=== PATIENT | male | born 1975 | race Caucasian/White ===

== ENCOUNTER 2018-01-28 10:03 | Emergency (ER) | payer OTHER ==
[~2018-01-28] VITALS: Ht 185.4 cm; Wt 103.4 kg
[2018-01-28 10:31] LABS: BASOPHILS # (AUTO) 0.1 /CMM (0.0-0.2); BASOPHILS % (AUTO) 0.6 % (0.0-2.0); EOSINOPHILS % (AUTO) 7.6 % (0.0-6.0); HEMATOCRIT 40 % (39-51); HEMOGLOBIN 13.5 g/dL (13.5-17.5); LYMPHOCYTES # (AUTO) 2.2 /CMM (0.8-4.8); LYMPHOCYTES % (AUTO) 21.7 % (20.0-44.0); MEAN CORPUSCULAR HGB CONC 34 g/dl (31.0-36.0); MEAN CORPUSCULAR VOLUME 83 fL (80-96); MONOCYTES # (AUTO) 0.5 /CMM (0.1-1.30); MONOCYTES % (AUTO) 5.1 % (2.0-12.0); NEUTROPHILS # (AUTO) 6.4 /CMM (1.8-8.9); PLATELET COUNT (AUTO) 314 /CMM (150-450); RDW COEFFICIENT OF VARIATION 16.3 (11.5-15.0); RED BLOOD CELL COUNT(AUTO) 4.84 MIL/uL (4.5-6.0)
[2018-01-28 10:43] LABS: ALCOHOL, BLOOD < 3 mg/dL (0-0); CALCIUM, SERUM 8.9 mg/dL (8.5-10.1); CARBON DIOXIDE 27 mmol/L (21-32); CHLORIDE 104 mmol/L (98-107); GLUCOSE 96 mg/dL (74-106); POTASSIUM 3.8 mmol/L (3.5-5.1); SODIUM SERUM 138 mmol/L (136-145); UREA NITROGEN, BLOOD 14 mg/dL (7-18)
--- NOTE | 2018-01-28 11:00 | NUR ---
suicidal ideation with plan to jump in front of train, NAD, VSS, resp even and unlabored, pt was put on monitor, seen by .
--- NOTE | 2018-01-28 11:37 | NUR ---
urine sent to lab
--- NOTE | 2018-01-28 14:26 | NUR ---
CALLED [facility] AND SPOKE WITH SHEET METAL SHOP SUPERVISOR ORI FOR A BLS TRANSPORT TO [facility]. WAS GIVEN A 1515 MANUFACTURING SUPERVISOR TIME. TRIP #: [id number]
--- NOTE | 2018-01-28 14:27 | NUR ---
CALLED FOR REPORT, EMELY PADGETT WILL CALL BACK. DIRECT PHONE [phone]
[2018-01-28 15:15] VITALS: BP 129/80
== END 2018-01-28 15:18 ==
LOC: ER 10:04
DX: F32.89 Other specified depressive episodes (principal); J45.909 Unspecified asthma, uncomplicated; F20.9 Schizophrenia, unspecified
CPT/HCPCS: 36415; 80048-TC; 80305; 85025-TC; A4606; G0480; Z7610

== ENCOUNTER 2018-05-14 17:29 | Emergency (ER) | payer OTHER ==
[~2018-05-14] VITALS: Ht 185.4 cm; Wt 103.9 kg
--- NOTE | 2018-05-14 17:35 | NUR ---
Presents to ER c/o suicidal ideation with a plan to jump infront of metrolink. calm and cooperative at this time. a/ox3, breathing even and unlabored. no sob, nad, vitals stable. safety and comfort measures in place. awaiting md orders.
[2018-05-14] MEDS ORDERED: ALBUTEROL FS 2.5 MG/3 ML VIAL.NEB NEB ONE (18:30)
--- NOTE | 2018-05-14 18:40 | NUR ---
mold tooling technician at bedside.
[2018-05-14 18:48] LABS: BASOPHILS # (AUTO) 0.1 /CMM (0.0-0.2); BASOPHILS % (AUTO) 0.6 % (0.0-2.0); EOSINOPHILS % (AUTO) 9.3 % (0.0-6.0); HEMATOCRIT 38 % (39-51); HEMOGLOBIN 12.5 g/dL (13.5-17.5); LYMPHOCYTES # (AUTO) 2.6 /CMM (0.8-4.8); LYMPHOCYTES % (AUTO) 23.4 % (20.0-44.0); MEAN CORPUSCULAR HGB CONC 33 g/dl (31.0-36.0); MEAN CORPUSCULAR VOLUME 86 fL (80-96); MONOCYTES % (AUTO) 9.4 % (2.0-12.0); NEUTROPHILS # (AUTO) 6.2 /CMM (1.8-8.9); NEUTROPHILS % (AUTO) 57.3 % (43.0-81.0); PLATELET COUNT (AUTO) 299 /CMM (150-450); RDW COEFFICIENT OF VARIATION 15.8 (11.5-15.0); RED BLOOD CELL COUNT(AUTO) 4.41 MIL/uL (4.5-6.0); WHITE BLOOD COUNT (AUTO) 10.9 K/uL (4.3-11.0)
[2018-05-14] MEDS ORDERED: ALBUTEROL FS 2.5 MG/3 ML VIAL.NEB ONE (18:50)
[2018-05-14 18:58] LABS: CALCIUM, SERUM 8.7 mg/dL (8.5-10.1); CARBON DIOXIDE 30 mmol/L (21-32); CHLORIDE 108 mmol/L (98-107); CREATININE 0.9 mg/dL (0.6-1.3); GLUCOSE 99 mg/dL (74-106); POTASSIUM 4.4 mmol/L (3.5-5.1); SODIUM SERUM 142 mmol/L (136-145); UREA NITROGEN, BLOOD 18 mg/dL (7-18)
[2018-05-14 19:04] LABS: ACETAMINOPHEN 0 ug/ml (10-30); ALANINE AMINOTRANSFERASE 225 U/L (12-78); ALBUMIN 3.2 g/dL (3.4-5.0); ALCOHOL, BLOOD < 3 mg/dL (0-0); ALKALINE PHOSPHATASE 119 U/L (46-116); ASPARTATE AMINOTRANSFERASE 89 U/L (15-37); BILIRUBIN,TOTAL 0.2 mg/dL (0.2-1.0); SALICYLATE 1.9 mg/dL (2.8-20.0); TOTAL PROTEIN, SERUM 6.7 g/dL (6.4-8.2)
[2018-05-14 19:19] LABS: APPEARANCE,URINE Clear (CLEAR); BILIRUBIN,URINE Negative (NEGATIVE); BLOOD, URINE Negative Ery/uL (NEGATIVE); COLOR,URINE Yellow (YELLOW); KETONES,URINE Trace (NEGATIVE); LEUKOCYTE ESTERASE ,URINE Negative (NEGATIVE); NITRITE, URINE Negative (NEGATIVE); PROTEIN,URINE Negative (NEGATIVE); UGLUCOSE Negative (NEGATIVE); UROBILINOGEN,URINE 0.2 EU/dL (0.2)
--- NOTE | 2018-05-14 19:21 | NUR ---
RECIEVED REPORT FROM EMELY TRAN FOR JCARLOS. PT RESTING IN BED WITH NO S/S OF DISTRESS NOTED. WATER,FOOD,AND TOILETTING OFFERED TO PT. WILL CONTINUE TO MONITOR PT. SI PRECAUTIONS IN PLACE.
[2018-05-14 19:30] LABS: RBC,URINE 0-2 /HPF (0-2)
[2018-05-14 19:31] LABS: BACTERIA,URINE Rare /HPF (None Seen); SQUAMOUS EPITHELIAL CELL,UR Few /HPF (None Seen); WBC,URINE NONE SEEN /HPF (0-3)
--- NOTE | 2018-05-14 19:45 | NUR ---
Patient is resting comfortably in bed with eyes closed. Easily aroused. VSS
--- NOTE | 2018-05-14 21:05 | NUR ---
Patient is resting comfortably in bed with eyes closed. Easily aroused. VSS
--- NOTE | 2018-05-14 22:59 | NUR ---
PT RESTING IN BED WITH NO S/S OF DISTRESS NOTED. WILL CONTINUE TO MONITOR PT FOR SAFETY.
--- NOTE | 2018-05-15 00:03 | NUR ---
Pt accepted to [facility] by Dr Savage. # for report [phone].
--- NOTE | 2018-05-15 00:15 | NUR ---
SPOKE WITH CAM AT [facility] TRIP#[id number] ETA 120-150 MINUTES
--- NOTE | 2018-05-15 00:56 | NUR ---
REPORT GIVEN TO SUPERVISOR COIN MACHINE RITA FOR JCARLOS
--- NOTE | 2018-05-15 02:15 | NUR ---
Patient is resting comfortably in bed with eyes closed. Easily aroused. VSS
[2018-05-15 02:58] VITALS: BP 128/76
--- NOTE | 2018-05-15 03:02 | NUR ---
Patient Tranfers to outside Facility Physician:Dr Savage Location:[facility]
--- NOTE | 2018-05-15 03:02 | NUR ---
REPORT GIVEN TO EMS CREW FOR JCARLOS. PT TRANSFERRED ONTO EMS GURNEY. NO S/S OF DISTRESS NOTED
== END 2018-05-15 03:05 ==
LOC: ER 17:30
DX: R45.851 Suicidal ideations (principal); F25.9 Schizoaffective disorder, unspecified; J45.909 Unspecified asthma, uncomplicated; F31.9 Bipolar disorder, unspecified; F13.20 Sedative, hypnotic or anxiolytic dependence, uncomplicated; Z60.2 Problems related to living alone
CPT/HCPCS: 36415; 71045; 76705; 80048; 80076; 80305; 80329; 81001; 85025; 94640; 99285; A4606; G0480 ×2; Z7610; 81000-TC

== ENCOUNTER 2019-03-03 19:17 | Emergency (ER) | payer MEDICAID, OTHER ==
[~2019-03-03] VITALS: Ht 182.9 cm; Wt 115.7 kg
--- NOTE | 2019-03-03 21:18 | NUR ---
JULIANO C/O FEELING DEPRESSED, DAD JUST . PATIENT STATES HE FEELS SUICIDAL, PLAN TO LAY ON TRAIN TRACKS X 3 DAYS. HE HAS ATTEMPTED SUICIDE IN THE PAST. SUICIDAL PRECAUTIONS IMPLEMENTED. PT IN GOWN, BELONGINGS AT NURSE STATION, WANDED BY SECURITY. URINE AND BLOOD DRAWN. WILL MONITOR ACCORDINGLY.
[2019-03-03 21:40] LABS: BASOPHILS # (AUTO) 0.1 /CMM (0.0-0.2); BASOPHILS % (AUTO) 0.3 % (0.0-2.0); EOSINOPHILS % (AUTO) 1.1 % (0.0-6.0); HEMATOCRIT 38 % (39-51); HEMOGLOBIN 12.1 g/dL (13.5-17.5); LYMPHOCYTES # (AUTO) 2.1 /CMM (0.8-4.8); LYMPHOCYTES % (AUTO) 12.3 % (20.0-44.0); MEAN CORPUSCULAR HGB CONC 32 g/dl (31.0-36.0); MEAN CORPUSCULAR VOLUME 78 fL (80-96); MONOCYTES # (AUTO) 0.8 /CMM (0.1-1.30); MONOCYTES % (AUTO) 4.4 % (2.0-12.0); NEUTROPHILS # (AUTO) 14.2 /CMM (1.8-8.9); NEUTROPHILS % (AUTO) 81.9 % (43.0-81.0); PLATELET COUNT (AUTO) 311 /CMM (150-450); RED BLOOD CELL COUNT(AUTO) 4.82 MIL/uL (4.5-6.0); WHITE BLOOD COUNT (AUTO) 17.4 K/uL (4.3-11.0)
[2019-03-03 21:44] LABS: APPEARANCE,URINE CLEAR (CLEAR); BILIRUBIN,URINE NEGATIVE (NEGATIVE); BLOOD, URINE NEGATIVE Ery/uL (NEGATIVE); COLOR,URINE YELLOW (YELLOW); KETONES,URINE NEGATIVE (NEGATIVE); LEUKOCYTE ESTERASE ,URINE NEGATIVE (NEGATIVE); NITRITE, URINE NEGATIVE (NEGATIVE); PROTEIN,URINE NEGATIVE (NEGATIVE); UGLUCOSE NEGATIVE (NEGATIVE)
[2019-03-03 21:53] LABS: CALCIUM, SERUM 8.6 mg/dL (8.5-10.1); CARBON DIOXIDE 27 mmol/L (21-32); CHLORIDE 104 mmol/L (98-107); CREATININE 1.2 mg/dL (0.6-1.3); GLUCOSE 126 mg/dL (74-106); POTASSIUM 3.5 mmol/L (3.5-5.1); SODIUM SERUM 142 mmol/L (136-145); UREA NITROGEN, BLOOD 13 mg/dL (7-18)
[2019-03-03 21:57] LABS: BACTERIA,URINE None seen /HPF (None Seen); RBC,URINE 0-2 /HPF (0-2); SQUAMOUS EPITHELIAL CELL,UR 0-2 /HPF (None Seen); WBC,URINE 0-2 /HPF (0-3)
[2019-03-03 21:58] LABS: ALANINE AMINOTRANSFERASE 167 U/L (12-78); ALBUMIN 3.2 g/dL (3.4-5.0); ALCOHOL, BLOOD < 3 mg/dL (0-0); ALKALINE PHOSPHATASE 106 U/L (46-116); ASPARTATE AMINOTRANSFERASE 70 U/L (15-37); BILIRUBIN,DIRECT 0.1 mg/dL (0.0-0.2); BILIRUBIN,TOTAL 0.3 mg/dL (0.2-1.0)
[2019-03-03 21:59] LABS: ACETAMINOPHEN 0 ug/ml (10-30); SALICYLATE 0.6 mg/dL (2.8-20.0)
--- NOTE | 2019-03-03 23:21 | NUR ---
PT ASLEEP IN BED, EASILY AROUSED. NO COMPLAINTS AT THIS TIME. VSS, WILL CONT TO MONITOR.
--- NOTE | 2019-03-04 01:00 | NUR ---
pt moved to ER bed 13. sitter at bedside for safety precautions.
--- NOTE | 2019-03-04 01:55 | NUR ---
PSYCH EVAL BEING DONE BY TRACE AT BEDSIDE.
--- NOTE | 2019-03-04 02:40 | NUR ---
PER CRISIS TEAM EVAL BY CODY, Pt IS A VOLUNTARY CANDIDATE FOR [facility]. PACKET HAS BEEN FAXED TO THE FACILITY. WAITING FOR CALL BACK TO SEE IF BED IS AVAILABLE.
--- NOTE | 2019-03-04 03:36 | NUR ---
Pt IS COMFORTABLY ASLEEP IN BED. NO S/S OF ACUTE DISTRESS OR SOB NOTED. RESPIRATIONS EVEN AND UNLABORED. SITTER AT BEDSIDE FOR SAFETY PRECAUTION.
--- NOTE | 2019-03-04 06:06 | NUR ---
CALLED [facility] AND THEY RECEIVED THE PT INFORMATION. THEY STATED THAT THEY WILL NOT HAVE ANY BEDS AVAILABLE UNTIL AFTER 11 AM.
--- NOTE | 2019-03-04 07:29 | NUR ---
ENDORSED TO DAYSHIFT SKIDDER LEVER OPERATOREMELY PROCTOR FOR Pt's JCARLOS. Pt IS AWAKE RESTING IN BED. NO S/S OF ACUTE DISTRESS OR SOB NOTED. RESPIRATIONS EVEN AND UNLABORED.
--- NOTE | 2019-03-04 07:30 | NUR ---
REPORT RECEIVED FROM DEJA HAN FOR JCARLOS
[2019-03-04] MEDS ORDERED: DOXYCYCLINE HYCLATE (100 MG) 100 MG TABLET PO ONE (09:30)
[2019-03-04] MEDS ORDERED: DOXYCYCLINE HYCLATE (100 MG) 100 MG TABLET ONE (09:55)
--- NOTE | 2019-03-04 10:54 | NUR ---
PER INTAKE GERSON [facility] WILL NOT ACCEPT PT BECAUSE NURSES ARE UNCOMFORTABLE ACCEPTING PLEURAL EFFUSION.
--- NOTE | 2019-03-04 11:46 | NUR ---
The patient is resting comfortably, with no acute s/s of distress noted. He denies any suicidal or homicidal ideation. He prefers to go home at this time and recheck in 2 days for bed availability at [facility]. PT. Encouraged to finish antimicrobial therapy for pneumonia. He HAS VERBALIZED UNDERSTANDING OF AFTERCARE INSTRUCTIONS .Patient discharged to home in stable condition.
[2019-03-04 11:54] VITALS: BP 134/81
== END 2019-03-04 11:59 | disposition home or self-care (01) ==
LOC: ER 19:18
DX: R45.851 Suicidal ideations (principal); J18.9 Pneumonia, unspecified organism; J45.909 Unspecified asthma, uncomplicated; Z60.2 Problems related to living alone
CPT/HCPCS: 36415; 71045; 80048; 80076; 80305; 80307; 80329; 81001; 85025; 99284; G0480; 81000-TC

== ENCOUNTER 2019-04-22 21:07 | Emergency (ER) | payer MEDICAID, OTHER ==
[~2019-04-22] VITALS: Ht 185.4 cm; Wt 115.7 kg
--- NOTE | 2019-04-22 21:13 | NUR ---
"BIB EMS C/O SI WITH PLAN TO JUMP IN FRONT OF [employer] TRAIN, HI WITH PLAN TO HURT SOMEONE" PT TO BED 14, PT ON MONITOR, ALL BELONGIN IN LOCKER FOR SAFETY. MAVERICK VERMA.
--- NOTE | 2019-04-22 21:15 | NUR ---
ELECTRONICS COMPUTER MECHANIC AT BEDSIDE
[2019-04-22 21:55] LABS: BASOPHILS # (AUTO) 0.1 /CMM (0.0-0.2); BASOPHILS % (AUTO) 0.9 % (0.0-2.0); EOSINOPHILS % (AUTO) 1.9 % (0.0-6.0); HEMATOCRIT 39 % (39-51); HEMOGLOBIN 12.4 g/dL (13.5-17.5); LYMPHOCYTES # (AUTO) 3.5 /CMM (0.8-4.8); LYMPHOCYTES % (AUTO) 26.8 % (20.0-44.0); MEAN CORPUSCULAR HGB CONC 32 g/dl (31.0-36.0); MEAN CORPUSCULAR VOLUME 79 fL (80-96); MONOCYTES % (AUTO) 7.8 % (2.0-12.0); NEUTROPHILS # (AUTO) 8.3 /CMM (1.8-8.9); NEUTROPHILS % (AUTO) 62.6 % (43.0-81.0); PLATELET COUNT (AUTO) 406 /CMM (150-450); RED BLOOD CELL COUNT(AUTO) 4.91 MIL/uL (4.5-6.0); WHITE BLOOD COUNT (AUTO) 13.2 K/uL (4.3-11.0)
[2019-04-22] MEDS ORDERED: OLANZAPINE 10 MG VIAL IM ONE ×2 (22:00→23:26)
[2019-04-22] MEDS ORDERED: LORAZEPAM INJ 2 MG/ML VIAL IM ONE (22:00)
[2019-04-22 22:07] LABS: CARBON DIOXIDE 25 mmol/L (21-32); CHLORIDE 100 mmol/L (98-107); CREATININE 0.9 mg/dL (0.6-1.3); GLUCOSE 89 mg/dL (74-106); POTASSIUM 3.5 mmol/L (3.5-5.1); SODIUM SERUM 138 mmol/L (136-145); UREA NITROGEN, BLOOD 17 mg/dL (7-18)
[2019-04-22 22:12] LABS: ALANINE AMINOTRANSFERASE 190 U/L (12-78); ALBUMIN 3.8 g/dL (3.4-5.0); ALCOHOL, BLOOD < 3 mg/dL (0-0); ALKALINE PHOSPHATASE 94 U/L (46-116); ASPARTATE AMINOTRANSFERASE 102 U/L (15-37); BILIRUBIN,DIRECT 0.3 mg/dL (0.0-0.2); BILIRUBIN,TOTAL 0.9 mg/dL (0.2-1.0); TOTAL PROTEIN, SERUM 7.7 g/dL (6.4-8.2)
[2019-04-22 22:13] LABS: ACETAMINOPHEN 0 ug/ml (10-30)
[2019-04-22] MEDS ORDERED: LORAZEPAM INJ 2 MG/ML VIAL ONE (23:27)
[2019-04-22 23:40] LABS: APPEARANCE,URINE Clear (CLEAR); BILIRUBIN,URINE Negative (NEGATIVE); BLOOD, URINE Negative Ery/uL (NEGATIVE); COLOR,URINE Yellow (YELLOW); KETONES,URINE 40 (NEGATIVE); LEUKOCYTE ESTERASE ,URINE Negative (NEGATIVE); NITRITE, URINE Negative (NEGATIVE); PROTEIN,URINE Negative (NEGATIVE); UGLUCOSE Negative (NEGATIVE); UROBILINOGEN,URINE 0.2 EU/dL (0.2)
[2019-04-22 23:47] LABS: BACTERIA,URINE Few /HPF (None Seen); MUCUS,URINE Few /LPF (None Seen); RBC,URINE 0-2 /HPF (0-2); SQUAMOUS EPITHELIAL CELL,UR Few /HPF (None Seen)
--- NOTE | 2019-04-23 00:50 | NUR ---
Patient is resting comfortably in bed with eyes closed. Easily aroused. VSS
--- NOTE | 2019-04-23 04:21 | NUR ---
PT RESTING COMFORTABLY IN BED. AROUSABLE BY PAINFUL STIMULI, DOES NOT STAY AWAKE TO ANSWER QUESTIONS. VITAL SIGNS STABLE. SITTER AT BEDSIDE. WILL CONTINUE TO MONITOR.
--- NOTE | 2019-04-23 05:40 | NUR ---
PT RESTING COMFORTABLY IN BED. SITTER AT BEDSIDE. VITAL SIGNS STABLE. WILL CONTINUE TO MONITOR.
--- NOTE | 2019-04-23 07:54 | NUR ---
PT ASLEEP ON BED EASILY AROUSABLE, V/S STABLE, KEPT RESTED AND COMFORTABLE, WILL CONTINUE TO MONITOR.
--- NOTE | 2019-04-23 08:20 | NUR ---
Social service consult requested by Jess Diaz for psychiatric evaluation. Pt. is a 44 year old male who came to [facility] for suicidal ideations with a plan to hurt himself. SW met with pt. bedside. Pt. was sitting upright on the bed eating breakfast. Pt. is alert and oriented x 4. Pt. had a sad affect. Pt. was cooperative with SW during the assessment. Pt. states he has been homeless for the past 3 months. Pt. was staying with friends prior to being homeless. Pt. receives $1080 in SSDI per month. Pt. states he is suicidal with a plan to jump in front of a train. Pt. has several psychiatric hospitalizations in the past. The most recent hospitalization was 3 weeks ago. Pt. takes Seroquel, Xanax, Zyprexa and Lexapro. Pt. states he is complaint with his medications. Pt. denies any alcohol and drug use at this time however, pt's toxicology shows positive for benzos and methamphetamines. Pt. is requesting for voluntary psychiatric hospitalizations. ADAM called Farzana at [facility] who informed ADAM to fax clinicals.
--- NOTE | 2019-04-23 08:20 | NUR ---
ADAM faxed clinical packet to intake at [facility] for voluntary psychiatric admission.
--- NOTE | 2019-04-23 09:30 | NUR ---
ADAM spoke with Farzana in Intake at [facility] who informed ADAM they are currently reviewing the packet and will contact ADAM once they have an answer.
--- NOTE | 2019-04-23 12:51 | NUR ---
ADAM received a call from [facility] at [facility] stating pt. is accepted under Dr. Bolivar. Report to be called in to x [phone]. [facility] to provide transportation. ADAM updated pt's RN Matias with pt's discharge plan.
--- NOTE | 2019-04-23 12:54 | NUR ---
PATIENT ACCEPTED AT [facility], PROGRAMMING COORDINATOR ETA 1430. PHONE # FOR REPORT [phone] EXT [phone]
--- NOTE | 2019-04-23 13:15 | NUR ---
REPORT GIVEN TO ESTER FRANCIS.
[2019-04-23 13:33] VITALS: BP 111/65
== END 2019-04-23 14:00 ==
LOC: ER 21:10
DX: F28 Other psychotic disorder not due to a substance or known physiological condition (principal); F19.10 Other psychoactive substance abuse, uncomplicated; R74.0 Nonspecific elevation of levels of transaminase and lactic acid dehydrogenase [LDH]; D64.9 Anemia, unspecified; J45.909 Unspecified asthma, uncomplicated; F20.9 Schizophrenia, unspecified; F32.9 Major depressive disorder, single episode, unspecified; Z60.2 Problems related to living alone
CPT/HCPCS: 36415; 76705; 80048; 80076; 80305; 80307; 80329; 81001; 85025; 96372 ×2; 99285; G0480; J2060; J3490; 81000-TC

== ENCOUNTER 2020-01-19 08:27 | Emergency (ER) | payer OTHER ==
[~2020-01-19] VITALS: Ht 182.9 cm; Wt 102.1 kg
--- NOTE | 2020-01-19 08:30 | NUR ---
came in for SI, "Im feeling Suicidal xcouple days" -plan: "lay down on train track", to ER bed 10, hooked to bp monitor and pox, changed to hosp gown, warm blanket provided, sitter at bedside for safety, Dr Majano at bedside
--- NOTE | 2020-01-19 08:35 | NUR ---
SUICIDAL PRECAUTIONS APPLIED
--- NOTE | 2020-01-19 09:01 | NUR ---
UNDERWRITING TECHNICIAN AT BEDSIDE FOR BLOOD DRAW
--- NOTE | 2020-01-19 09:06 | NUR ---
URINE SAMPLE COLLECTED AND SENT TO LAB
[2020-01-19 09:07] LABS: BASOPHILS % (AUTO) 0.6 % (0.0-2.0); EOSINOPHILS % (AUTO) 0.7 % (0.0-6.0); HEMATOCRIT 37 % (39-51); HEMOGLOBIN 11.6 g/dL (13.5-17.5); LYMPHOCYTES # (AUTO) 1.5 /CMM (0.8-4.8); LYMPHOCYTES % (AUTO) 19.6 % (20.0-44.0); MEAN CORPUSCULAR HGB CONC 31 g/dl (31.0-36.0); MEAN CORPUSCULAR VOLUME 72 fL (80-96); MONOCYTES # (AUTO) 0.5 /CMM (0.1-1.30); MONOCYTES % (AUTO) 6.9 % (2.0-12.0); NEUTROPHILS # (AUTO) 5.6 /CMM (1.8-8.9); NEUTROPHILS % (AUTO) 72.2 % (43.0-81.0); PLATELET COUNT (AUTO) 281 /CMM (150-450); RED BLOOD CELL COUNT(AUTO) 5.19 MIL/uL (4.5-6.0); WHITE BLOOD COUNT (AUTO) 7.8 K/uL (4.3-11.0)
[2020-01-19 09:21] LABS: ALANINE AMINOTRANSFERASE 57 U/L (12-78); ALBUMIN 4.1 g/dL (3.4-5.0); ALCOHOL, BLOOD < 3 mg/dL (0-0); ALKALINE PHOSPHATASE 85 U/L (46-116); ASPARTATE AMINOTRANSFERASE 32 U/L (15-37); BILIRUBIN,DIRECT 0.3 mg/dL (0.0-0.2); BILIRUBIN,TOTAL 1.1 mg/dL (0.2-1.0); CALCIUM, SERUM 9.2 mg/dL (8.5-10.1); CARBON DIOXIDE 23 mmol/L (21-32); CHLORIDE 104 mmol/L (98-107); CREATININE 0.8 mg/dL (0.6-1.3); GLUCOSE 89 mg/dL (74-106); POTASSIUM 3.6 mmol/L (3.5-5.1); SODIUM SERUM 140 mmol/L (136-145); TOTAL PROTEIN, SERUM 7.8 g/dL (6.4-8.2); UREA NITROGEN, BLOOD 15 mg/dL (7-18)
[2020-01-19 09:25] LABS: SALICYLATE 1.2 mg/dL (2.8-20.0)
[2020-01-19 09:26] LABS: ACETAMINOPHEN < 2 ug/ml (10-30)
[2020-01-19] MEDS ORDERED: OLANZAPINE 5 MG TABLET PO ONE (10:00)
--- NOTE | 2020-01-19 10:01 | NUR ---
PATIENT IN BED ASLEEP, EASILY AROUSABLE BY VOICE. HOOKED TO MONITOR. VSS. SITTER AT BEDSIDE FOR SAFETY. KEPT WARM SAFE AND COMFORTABLE. WILL CONTINUE TO MONITOR ACCORDINGLY.
[2020-01-19] MEDS ORDERED: OLANZAPINE 5 MG TABLET ONE (10:05)
[2020-01-19 10:59] LABS: LYMPHOCYTES % (MANUAL) 14 % (16-48); MONOCYTES % (MANUAL) 6 % (0-11.0); NEUTROPHILS % (MANUAL) 80 (42-76)
[2020-01-19 11:06] LABS: APPEARANCE,URINE Clear (CLEAR); BILIRUBIN,URINE SMALL (NEGATIVE); BLOOD, URINE Negative Ery/uL (NEGATIVE); COLOR,URINE Dark (YELLOW); KETONES,URINE 40 (NEGATIVE); LEUKOCYTE ESTERASE ,URINE Negative (NEGATIVE); NITRITE, URINE Negative (NEGATIVE); PH,URINE 5.5 (5.0-8.0); PROTEIN,URINE 30 mg/dl (NEGATIVE); UGLUCOSE Negative (NEGATIVE)
[2020-01-19 11:26] LABS: BACTERIA,URINE Few /HPF (None Seen); RBC,URINE NONE SEEN /HPF (0-2); SQUAMOUS EPITHELIAL CELL,UR Few /HPF (None Seen); WBC,URINE NONE SEEN /HPF (0-3)
--- NOTE | 2020-01-19 12:03 | NUR ---
COMFORTABLE IN BED ASLEEP, EASILY AROUSABLE BY VOICE. HOOKED TO MONITOR. VSS. SITTER AT BEDSIDE FOR SAFETY. KEPT WARM AND SAFE. WILL CONTINUE TO MONITOR ACCORDINGLY.
--- NOTE | 2020-01-19 12:42 | NUR ---
PROVIDED W LUNCH TRAY, TOLERATED PO WELL
--- NOTE | 2020-01-19 14:38 | NUR ---
PATIENT COMFORTABLE IN BED, AWAKE. HOOKED TO MONITOR, VSS. SITTER AT BEDSIDE. WILL CONTINUE TO MONITOR ACCORDINGLY
--- NOTE | 2020-01-19 16:23 | NUR ---
PATIENT COMFORTABLE IN BED, AWAKE. HOOKED TO MONITOR, VSS. SITTER AT BEDSIDE. WILL CONTINUE TO MONITOR ACCORDINGLY
--- NOTE | 2020-01-19 18:31 | NUR ---
PATIENT IN BED ASLEEP, EASILY AROUSABLE BY VOICE. HOOKED TO MONITOR, VSS. NOT IN DISTRESS. WILL CONTINUE TO MONITOR ACCORDINGLY. SITTER AT BEDSIDE.
--- NOTE | 2020-01-19 20:46 | NUR ---
SPOKE WITH HENRY FROM [facility], STILL NO BEDS AVAILABLE AT THIS TIME
--- NOTE | 2020-01-19 21:10 | NUR ---
PT RESTING COMFORTABLY IN BED. VITAL SIGNS STABLE. SITTER AT BEDSIDE. WILL CONTINUE TO MONITOR
--- NOTE | 2020-01-19 21:56 | NUR ---
SPOKE WITH MAYA FROM [facility], NO BEDS AVAILABLE AT THIS TIME
--- NOTE | 2020-01-19 21:57 | NUR ---
CALLED [facility], NO BEDS AVAILABLE AT THIS TIME
--- NOTE | 2020-01-20 01:15 | NUR ---
PT RESTING COMFORTABLY IN BED. VITAL SIGNS STABLE. SITTER AT BEDSIDE. WILL CONTINUE TO MONITOR
--- NOTE | 2020-01-20 03:56 | NUR ---
PATIENT IS SLEEPING. BREAHTHING EVENLY AND UNLABORED ON ROOM AIR. PATIENT IS CONNECTED TO MONITOR. EASILY AROUSABLE THROUGH TOUCH AND VOICE. SITTER AT BEDSIDE.
--- NOTE | 2020-01-20 05:38 | NUR ---
PT RESTING COMFORTABLY IN BED. VITAL SIGNS STABLE. SITTER AT BEDSIDE. WILL CONTINUE TO MONITOR
--- NOTE | 2020-01-20 08:06 | NUR ---
CALL BACK FROM [facility],ACCEPTED FOR [place],WAITING ON A BED
--- NOTE | 2020-01-20 08:44 | NUR ---
RECIEVED A CALL FROM RICK CANCHOLA. PT ACCEPTED AT [place]. ROOM NUMBER [id number]. NUMBER FOR REPORT [phone].
--- NOTE | 2020-01-20 08:45 | NUR ---
ACCEPTED BY DR MCKEON, GOING TO [facility] 415-A. REPORT TO [phone] EXT [phone]
--- NOTE | 2020-01-20 08:46 | NUR ---
DIRECTOR OF ONLINE EDUCATION was informed by Yakov at [facility] pt has been accepted to [place]. Bed 415/A. Report needs to be called to . DIRECTOR OF ONLINE EDUCATION updated Miguel Ángel in ED.
--- NOTE | 2020-01-20 08:51 | NUR ---
CALLED [facility] FOR TRASNPORT TO [facility]. ETA 1230.
[2020-01-20 11:00] VITALS: BP 124/60
--- NOTE | 2020-01-20 11:25 | NUR ---
REPORT GIVEN TO EDMAR AT [facility]. TRANSPORT AMBULANCE AT BEDSIDE. STABLE CONDITION.
== END 2020-01-20 11:38 ==
LOC: ER 09:03
DX: R45.851 Suicidal ideations (principal); J45.909 Unspecified asthma, uncomplicated; F31.9 Bipolar disorder, unspecified; F20.9 Schizophrenia, unspecified; Z60.2 Problems related to living alone
CPT/HCPCS: 36415; 80048; 80076; 80305; 80307; 80329; 81001; 85025; 99285; G0480; 81000-TC

== ENCOUNTER 2020-06-05 12:55 | Emergency (ER) | payer MEDICAID, OTHER ==
[~2020-06-05] VITALS: Ht 182.9 cm; Wt 98.9 kg
--- NOTE | 2020-06-05 13:18 | NUR ---
PT REFERRED HERE BY [facility] D/T SUICIDAL IDEATION,. PT STATES THAT HE WANTS TO KILL HIMSELF AND THAT HIS PLAN IS TO LAY ONTHE TRAIN TRACKS AND GET RAN OVER BY A TRAIN. VS CHECKED. URINE COLLECTED. AWAITING MD BROOKE. Addendum: 06/05/20 at 1440 by DCABANOS BELONGINGS CHECKED. PLACED IN BED 14
--- NOTE | 2020-06-05 13:20 | NUR ---
CALLED SECURITY FOR WANDING
[2020-06-05 16:23] LABS: BASOPHILS % (AUTO) 0.4 % (0.0-2.0); EOSINOPHILS % (AUTO) 2.8 % (0.0-6.0); HEMATOCRIT 38 % (39-51); HEMOGLOBIN 11.7 g/dL (13.5-17.5); LYMPHOCYTES # (AUTO) 2.3 /CMM (0.8-4.8); LYMPHOCYTES % (AUTO) 27.3 % (20.0-44.0); MEAN CORPUSCULAR HGB CONC 31 g/dl (31.0-36.0); MEAN CORPUSCULAR VOLUME 81 fL (80-96); MONOCYTES # (AUTO) 0.3 /CMM (0.1-1.30); MONOCYTES % (AUTO) 3.9 % (2.0-12.0); NEUTROPHILS # (AUTO) 5.5 /CMM (1.8-8.9); NEUTROPHILS % (AUTO) 65.6 % (43.0-81.0); PLATELET COUNT (AUTO) 265 /CMM (150-450); RED BLOOD CELL COUNT(AUTO) 4.69 MIL/uL (4.5-6.0); WHITE BLOOD COUNT (AUTO) 8.4 K/uL (4.3-11.0)
[2020-06-05 16:28] LABS: APPEARANCE,URINE CLEAR (CLEAR); BILIRUBIN,URINE NEGATIVE (NEGATIVE); BLOOD, URINE NEGATIVE Ery/uL (NEGATIVE); COLOR,URINE YELLOW (YELLOW); KETONES,URINE NEGATIVE (NEGATIVE); LEUKOCYTE ESTERASE ,URINE NEGATIVE (NEGATIVE); NITRITE, URINE NEGATIVE (NEGATIVE); PROTEIN,URINE NEGATIVE (NEGATIVE); UGLUCOSE >=1000 mg/dL (NEGATIVE); UROBILINOGEN,URINE 0.2 EU/dL (0.2)
--- NOTE | 2020-06-05 16:59 | NUR ---
Patient came from [facility] for medical clearance. Patient is alert and oriented x4. Patient was sitting up in the hospital bed, was eating a sandwich and had appeared to be sad. Patient is a 45-year-old male. Patient confirmed date of , address, and social security on face sheet. Patient also provided update contact number . Patient reports that he has been diagnosed with schizoaffective disorder and last medication dosage was this morning. Patient reports that his grandmother last week and is currently feeling suicidal. Patient reports that he knows that he is grieving but also knows that this is not how he should be feeling. Per patient I care about my life but like right now I do not care. Patient stated that his family is currently unaware of his whereabouts and would like to keep it that way, patient stated Its going to be a whole thing. Like my family doesnt believe in mental health. I need this for me. Patient reports that he is not working, patient does receive $1,030 in Social Security income. Patient reports that his current suicidal plan is to lie on train tracks. Patient informed this SW that he would like to be sent to [facility] location only as he has been seen by Dr. Farias previously. Patient stated we have a good rapport. He knows the medication he has given me. I only want to see him. SW informed patient that she would include this request when sending clinicals over however depending on bed availability he may be sent to another [facility] for treatment. Patient understood and agreed. ADAM informed ED EMELY Briggs that patient is a voluntary psychiatric patient. Clinicals to be faxed over once received from lab. ED EMELY Briggs in agreement. ADAM contacted Yakov at [facility] about patient and patients request to be seen by Dr. Farias. Per Yakov, patient will be admitted under Dr. Farias. Plan: ED to fax clinicals with labs and COVID results.
[2020-06-05 17:03] LABS: CALCIUM, SERUM 8.9 mg/dL (8.5-10.1); CARBON DIOXIDE 29 mmol/L (21-32); CHLORIDE 105 mmol/L (98-107); CREATININE 0.9 mg/dL (0.6-1.3); GLUCOSE 129 mg/dL (74-106); POTASSIUM 4.1 mmol/L (3.5-5.1); SODIUM SERUM 142 mmol/L (136-145); UREA NITROGEN, BLOOD 12 mg/dL (7-18)
[2020-06-05 17:07] LABS: ALANINE AMINOTRANSFERASE 106 U/L (12-78); ALBUMIN 3.4 g/dL (3.4-5.0); ALCOHOL, BLOOD < 3 mg/dL (0-0); ALKALINE PHOSPHATASE 101 U/L (46-116); ASPARTATE AMINOTRANSFERASE 67 U/L (15-37); BILIRUBIN,DIRECT 0.1 mg/dL (0.0-0.2); BILIRUBIN,TOTAL 0.4 mg/dL (0.2-1.0); TOTAL PROTEIN, SERUM 7.2 g/dL (6.4-8.2)
[2020-06-05 17:08] LABS: ACETAMINOPHEN < 2 ug/ml (10-30)
--- NOTE | 2020-06-05 22:41 | NUR ---
FAXED CLINICALS TO [facility] [phone]
--- NOTE | 2020-06-05 23:01 | NUR ---
THEY GOT THE FAX AND GIVEN TO SUP FOR REVIEW. AND AWAITING FOR AVAILABILITY OF BEDS.
[2020-06-05] MEDS ORDERED: LORAZEPAM 1 MG TABLET ONE (23:28)
[2020-06-05] MEDS ORDERED: LORAZEPAM 1 MG TABLET PO ONE (23:30)
--- NOTE | 2020-06-06 01:17 | NUR ---
CALLED [facility] SPOKE TO [facility]. VERIFIED RECEIVED PT CLINICALS.
--- NOTE | 2020-06-06 01:37 | NUR ---
PER LAB, COVID TEST NEGATIVE.
--- NOTE | 2020-06-06 01:44 | NUR ---
COVID RESULTS FAXED TO [facility]
--- NOTE | 2020-06-06 03:16 | NUR ---
SPOKE TO CJ FROM [facility] NO BEDS AT THIS TIME, PER CJ WILL ENDORSE TO THE NEXT SHIFT.
[2020-06-06] MEDS ORDERED: ACETAMINOPHEN ES 500 MG TABLET ONE (12:20)
[2020-06-06] MEDS ORDERED: ACETAMINOPHEN ES 500 MG TABLET PO ONE (12:30)
--- NOTE | 2020-06-06 12:45 | NUR ---
RECIEVED A CALL FROM HENRY FROM [facility]. PT ACCEPTED UNDER THE CARE OF DR. ASENCIO/DR. DOUGHERTY. NUMBER FOR REPORT. [phone].
--- NOTE | 2020-06-06 12:50 | NUR ---
REPORT GIVEN TO EMELY ALVAREZ OF [facility] FOR [facility].
--- NOTE | 2020-06-06 13:52 | NUR ---
CALLED [facility] FOR TRANSPORT TO [facility]. ETA 10 MINUTES.
--- NOTE | 2020-06-06 14:12 | NUR ---
[facility] #[id number] AT PT BEDSIDE FOR TRANSPORT TO [facility]. REPORT GIVEN TO ETHAN. NAD NOTED. VSS
[2020-06-06 14:14] VITALS: BP 126/76
== END 2020-06-06 14:26 ==
LOC: ER 13:03
DX: R45.851 Suicidal ideations (principal); Z20.828 Contact with and (suspected) exposure to other viral communicable diseases; Z59.0 Homelessness; F31.9 Bipolar disorder, unspecified; F20.9 Schizophrenia, unspecified; J45.909 Unspecified asthma, uncomplicated
CPT/HCPCS: 36415; 80048; 80076; 80299; 80307; 80320; 81001; 85025; 87426; 99285; C9803; 81000-TC; G0480

== ENCOUNTER → 2020-08-25 | Emergency (ER) | payer MEDICAID ==
[~2020-08-25] VITALS: Ht 182.9 cm; Wt 102.1 kg
--- NOTE | 2020-08-25 09:35 | NUR ---
PT SELF PRESENTS TO ED. C/O DEPRESSION W/ SUICIDAL IDEATION, PLAN TO JUMP IN FRONT OF A TRAIN. STATES WENT TO ED FOR VOLUNTARY PSYCH ADMISSION. STABLE VITALS. SENT TO ED WAITING ROOM W/ SITTED. AWAITING MD BROOKE.
[2020-08-25 09:46] LABS: BILIRUBIN,URINE Negative (NEGATIVE); COLOR,URINE YELLOW (YELLOW); LEUKOCYTE ESTERASE ,URINE Negative (NEGATIVE); NITRITE, URINE Negative (NEGATIVE); PROTEIN,URINE Negative (NEGATIVE); UGLUCOSE Negative (NEGATIVE); UROBILINOGEN,URINE 0.2 EU/dL (0.2)
--- NOTE | 2020-08-25 09:53 | NUR ---
DR ARANA IN TO SEE PATIENT FOR EVAL.
--- NOTE | 2020-08-25 09:55 | NUR ---
PAY STATION ATTENDANT AT BEDSIDE FOR BLOOD DRAW.
[2020-08-25 10:00] LABS: BASOPHILS % (AUTO) 0.4 % (0.0-2.0); EOSINOPHILS % (AUTO) 1.4 % (0.0-6.0); HEMATOCRIT 45 % (39-51); HEMOGLOBIN 14.4 g/dL (13.5-17.5); LYMPHOCYTES # (AUTO) 1.9 /CMM (0.8-4.8); LYMPHOCYTES % (AUTO) 19.1 % (20.0-44.0); MEAN CORPUSCULAR HGB CONC 32 g/dl (31.0-36.0); MEAN CORPUSCULAR VOLUME 79 fL (80-96); MONOCYTES # (AUTO) 0.5 /CMM (0.1-1.30); MONOCYTES % (AUTO) 5.3 % (2.0-12.0); NEUTROPHILS # (AUTO) 7.2 /CMM (1.8-8.9); NEUTROPHILS % (AUTO) 73.8 % (43.0-81.0); PLATELET COUNT (AUTO) 299 /CMM (150-450); RED BLOOD CELL COUNT(AUTO) 5.74 MIL/uL (4.5-6.0); WHITE BLOOD COUNT (AUTO) 9.7 K/uL (4.3-11.0)
[2020-08-25 10:06] LABS: CALCIUM, SERUM 9.3 mg/dL (8.5-10.1); CARBON DIOXIDE 30 mmol/L (21-32); CHLORIDE 103 mmol/L (98-107); GLUCOSE 107 mg/dL (74-106); SODIUM SERUM 140 mmol/L (136-145); UREA NITROGEN, BLOOD 14 mg/dL (7-18)
[2020-08-25 10:11] LABS: ALANINE AMINOTRANSFERASE 145 U/L (12-78); ALCOHOL, BLOOD < 3 mg/dL (0-0); ALKALINE PHOSPHATASE 136 U/L (46-116); ASPARTATE AMINOTRANSFERASE 57 U/L (15-37); BILIRUBIN,DIRECT 0.1 mg/dL (0.0-0.2); BILIRUBIN,TOTAL 0.3 mg/dL (0.2-1.0); TOTAL PROTEIN, SERUM 8.4 g/dL (6.4-8.2)
[2020-08-25 10:13] LABS: ACETAMINOPHEN 0 ug/ml (10-30)
--- NOTE | 2020-08-25 11:25 | NUR ---
Vince is a 45 year-old male who presented to [facility] ED from [facility] for medical clearance. Patient is alert and oriented x4. Patient provided update contact number . Patient reports that he has been diagnosed with schizoaffective disorder and patient reported he was angry one day and he threw his medication in the trash. Patient reported that he is having family issues and at this time his family is currently unaware of his whereabouts and would like to keep it that way. Patient reports that he is not working, patient does receive $1,030 in Social Security income. Patient admitted to use of Marijuana however denied alcohol and other drug use. Patient denied homicidal ideation. Patient denied auditory and visual hallucinations. Patient reports that his current suicidal plan is to lie on train tracks. Patient informed this SW that he would like to be sent to [facility] location. Patient was calm and cooperative throughout this assessment. Patient thought process is clear and concise. Patients speech is clear. Patient able to make needs known. Plan: ADAM will fax clinicals to [facility] intake [phone] without COVID test result. ADAM will notify Yakov [phone] at [facility] regarding this referral. ADAM remains available for all needs regarding this patient.
--- NOTE | 2020-08-25 11:45 | NUR ---
ADAM received a call from [facility] and spoke with Merle [phone] regarding this patient. Merle asked this ADAM to fax COVID results as soon as possible. ADAM remains available for all needs regarding this patient.
--- NOTE | 2020-08-25 12:04 | NUR ---
ADAM faxed clinicals to [facility] [phone] without COVID result. Plan: ADAM to fax COVID result when result returns. ADAM remains available for all needs regarding this patient.
--- NOTE | 2020-08-25 13:14 | NUR ---
LAB CALLED PT COVID-19 RESULT NEGATIVE. (-)
--- NOTE | 2020-08-25 13:36 | NUR ---
This SW faxed COVID result to [facility] Intake [phone]. Plan: SW to follow-up with [facility] Intake [phone] regarding status of referral regarding patient.
--- NOTE | 2020-08-25 13:51 | NUR ---
This SW received a call from [facility] and spoke with Carmen [phone] per Carmen, medical clearance is pending. ADAM informed Carmen that this SW would fax medical clearance at this time. Plan: ADAM to follow-up with Carmen [phone] regarding status of referral. ADAM remains available for all needs regarding this patient.
--- NOTE | 2020-08-25 13:53 | NUR ---
This SW faxed medical clearance note from ED physician Dr. Jacques to [facility] Intake [phone] (fax). SW remains available for all needs regarding this patient.
--- NOTE | 2020-08-25 14:28 | NUR ---
SW received a call from Merle at [facility] Intake [phone]. Merle provided this SW with accepting information. Patient has been accepted under the care of Dr. Farias. Patient will be going to Unit 2 room 211B. Number for nurse to nurse report is [phone]. SW remains available for all needs regarding this patient.
--- NOTE | 2020-08-25 14:42 | NUR ---
SW received a call from Merle at [facility] Intake [phone]. Merle provided this SW with accepting information. Patient has been accepted under the care of Dr. Farias. Patient will be going to Unit 2 room 211B. Number for nurse to nurse report is [phone]. SW remains available for all needs regarding this patient.
--- NOTE | 2020-08-25 14:47 | NUR ---
TRANSPORT CALLED [facility] [phone] ETA IS 60 MINS.
--- NOTE | 2020-08-25 15:53 | NUR ---
REPORT GIVEN TO EMELY WILCOX FOR JCARLOS.
[2020-08-25 15:54] VITALS: BP 125/88
--- NOTE | 2020-08-25 16:01 | NUR ---
UNABLE TO DEPART.
== END ==
LOC: ER 09:26
DX: R45.851 Suicidal ideations (principal); F31.9 Bipolar disorder, unspecified; Z59.0 Homelessness; F20.9 Schizophrenia, unspecified; J45.909 Unspecified asthma, uncomplicated
CPT/HCPCS: 36415; 80048; 80076; 80299; 80307; 80320; 81003; 85025; 87426; 99285; C9803; G0480

== ENCOUNTER 2020-09-08 19:18 | Emergency (ER) | payer MEDICAID ==
[~2020-09-08] VITALS: Ht 182.9 cm; Wt 103.0 kg
--- NOTE | 2020-09-08 19:39 | NUR ---
bibself for + si plan to lay on train tracks - hi. pt aox4 rr even and unlabored. no sob noted. no nvd at this time. no acute distress noted. pt cooperative and calm at this time. pt agrees to plan of care.
--- NOTE | 2020-09-08 20:10 | NUR ---
URINE COLLECTED. HUI TO LAB
[2020-09-08 20:25] LABS: BASOPHILS % (AUTO) 0.4 % (0.0-2.0); HEMATOCRIT 37 % (39-51); HEMOGLOBIN 11.7 g/dL (13.5-17.5); LYMPHOCYTES # (AUTO) 2.4 /CMM (0.8-4.8); LYMPHOCYTES % (AUTO) 21.4 % (20.0-44.0); MEAN CORPUSCULAR HGB CONC 32 g/dl (31.0-36.0); MEAN CORPUSCULAR VOLUME 79 fL (80-96); MONOCYTES # (AUTO) 0.5 /CMM (0.1-1.30); MONOCYTES % (AUTO) 4.9 % (2.0-12.0); NEUTROPHILS # (AUTO) 8.1 /CMM (1.8-8.9); NEUTROPHILS % (AUTO) 72.3 % (43.0-81.0); PLATELET COUNT (AUTO) 325 /CMM (150-450); RED BLOOD CELL COUNT(AUTO) 4.71 MIL/uL (4.5-6.0); WHITE BLOOD COUNT (AUTO) 11.2 K/uL (4.3-11.0)
[2020-09-08 20:26] LABS: BILIRUBIN,URINE Negative (NEGATIVE); COLOR,URINE YELLOW (YELLOW); LEUKOCYTE ESTERASE ,URINE Negative (NEGATIVE); NITRITE, URINE Negative (NEGATIVE); PROTEIN,URINE Negative (NEGATIVE); UGLUCOSE Negative (NEGATIVE); UROBILINOGEN,URINE 0.2 EU/dL (0.2)
[2020-09-08 20:27] LABS: BACTERIA,URINE Rare /HPF (None Seen); SQUAMOUS EPITHELIAL CELL,UR Few /HPF (None Seen); WBC,URINE NONE SEEN /HPF (0-3)
--- NOTE | 2020-09-08 20:59 | NUR ---
COVID SWAB COLLECTED AND SENT TO LAB
[2020-09-08 21:02] LABS: CALCIUM, SERUM 9.2 mg/dL (8.5-10.1); CARBON DIOXIDE 29 mmol/L (21-32); CHLORIDE 101 mmol/L (98-107); GLUCOSE 79 mg/dL (74-106); POTASSIUM 3.8 mmol/L (3.5-5.1); SODIUM SERUM 139 mmol/L (136-145); UREA NITROGEN, BLOOD 12 mg/dL (7-18)
[2020-09-08 21:08] LABS: ALANINE AMINOTRANSFERASE 96 U/L (12-78); ALBUMIN 3.6 g/dL (3.4-5.0); ALCOHOL, BLOOD < 3 mg/dL (0-0); ALKALINE PHOSPHATASE 85 U/L (46-116); ASPARTATE AMINOTRANSFERASE 63 U/L (15-37); BILIRUBIN,DIRECT 0.1 mg/dL (0.0-0.2); BILIRUBIN,TOTAL 0.3 mg/dL (0.2-1.0); TOTAL PROTEIN, SERUM 7.9 g/dL (6.4-8.2)
[2020-09-08 21:41] LABS: ACETAMINOPHEN < 0 ug/ml (10-30)
--- NOTE | 2020-09-08 21:43 | NUR ---
LAB CALLED REGARDING POSITIVE COVID RESULT.
--- NOTE | 2020-09-08 21:49 | NUR ---
PT MOVED TO ER BED 6; ISOLATION PRECAUTION PLACED.
--- NOTE | 2020-09-08 21:50 | NUR ---
SECURITY AT BEDSIDE FOR WANDING.
--- NOTE | 2020-09-08 21:54 | NUR ---
FACESHEET AND CLINICAL FAXED TO [facility] INTAKE FOR VOLUNTARY PSYCH ADMISSION.
[2020-09-08 22:06] VITALS: BP 116/69
--- NOTE | 2020-09-08 22:53 | NUR ---
ACCEPTED AT [facility] [address]. GONZALEZ [phone] EXT [phone]
--- NOTE | 2020-09-08 23:00 | NUR ---
[facility] ETA 3452
--- NOTE | 2020-09-08 23:06 | NUR ---
GAVE REPORT TO EMELY NAVARRO AT [facility] FOR JCARLOS.
--- NOTE | 2020-09-09 00:06 | NUR ---
PT WAS TRANSFERRE TO [facility] IN STABLE CONDITION. ALL BELONGINGS PICKED UP BY shearer operator. Addendum: 09/09/20 at 0009 by RON PT WAS TRANSFERRED TO [facility]
== END 2020-09-09 00:10 ==
LOC: ER 19:27
DX: R45.851 Suicidal ideations (principal); U07.1 COVID-19; J45.909 Unspecified asthma, uncomplicated; F20.9 Schizophrenia, unspecified; F31.9 Bipolar disorder, unspecified; Z59.0 Homelessness
CPT/HCPCS: 36415; 80048; 80076; 80299; 80307; 80320; 81001; 85025; 87426; 99285; C9803; G0480

== ENCOUNTER 2020-10-19 16:17 | Emergency (ER) | payer MEDICAID ==
[~2020-10-19] VITALS: Ht 182.9 cm; Wt 102.1 kg
--- NOTE | 2020-10-19 16:24 | NUR ---
Patient came in to the er c/o +SI "jump in front of a train". Ambulatory with steady gait. sitter at bedside for constant monitoring. Will continue to monitor accordingly.
--- NOTE | 2020-10-19 16:24 | NUR ---
SEEN AND EXAMINED BY .
--- NOTE | 2020-10-19 16:25 | NUR ---
URINE SPECIMEN COLLECTED AND SENT TO LAB.
--- NOTE | 2020-10-19 16:29 | NUR ---
SECURITY AT BEDSIDE FOR WANDING.
[2020-10-19 16:46] LABS: BILIRUBIN,URINE Negative (NEGATIVE); COLOR,URINE YELLOW (YELLOW); LEUKOCYTE ESTERASE ,URINE Negative (NEGATIVE); NITRITE, URINE Negative (NEGATIVE); PH,URINE 5.5 (5.0-8.0); PROTEIN,URINE Negative (NEGATIVE); UGLUCOSE Negative (NEGATIVE); UROBILINOGEN,URINE 0.2 EU/dL (0.2)
[2020-10-19 16:48] LABS: BASOPHILS % (AUTO) 0.5 % (0.0-2.0); EOSINOPHILS % (AUTO) 5.4 % (0.0-6.0); HEMATOCRIT 35 % (39-51); HEMOGLOBIN 11.2 g/dL (13.5-17.5); LYMPHOCYTES # (AUTO) 2.9 /CMM (0.8-4.8); LYMPHOCYTES % (AUTO) 30.6 % (20.0-44.0); MEAN CORPUSCULAR HGB CONC 32 g/dl (31.0-36.0); MEAN CORPUSCULAR VOLUME 78 fL (80-96); MONOCYTES # (AUTO) 0.7 /CMM (0.1-1.30); MONOCYTES % (AUTO) 7.2 % (2.0-12.0); NEUTROPHILS # (AUTO) 5.3 /CMM (1.8-8.9); NEUTROPHILS % (AUTO) 56.3 % (43.0-81.0); PLATELET COUNT (AUTO) 283 /CMM (150-450); RED BLOOD CELL COUNT(AUTO) 4.49 MIL/uL (4.5-6.0); WHITE BLOOD COUNT (AUTO) 9.4 K/uL (4.3-11.0)
[2020-10-19 17:01] LABS: CALCIUM, SERUM 8.7 mg/dL (8.5-10.1); CARBON DIOXIDE 30 mmol/L (21-32); CHLORIDE 106 mmol/L (98-107); CREATININE 0.9 mg/dL (0.6-1.3); GLUCOSE 114 mg/dL (74-106); POTASSIUM 3.7 mmol/L (3.5-5.1); SODIUM SERUM 142 mmol/L (136-145); UREA NITROGEN, BLOOD 11 mg/dL (7-18)
[2020-10-19 17:03] LABS: BACTERIA,URINE Few /HPF (None Seen); CALCIUM OXALATE CRYSTALS,UR Moderate /HPF (None Seen); RBC,URINE 0-2 /HPF (0-2); SQUAMOUS EPITHELIAL CELL,UR Few /HPF (None Seen); WBC,URINE 0-2 /HPF (0-3)
[2020-10-19 17:13] LABS: ALANINE AMINOTRANSFERASE 55 U/L (12-78); ALBUMIN 3.1 g/dL (3.4-5.0); ALCOHOL, BLOOD 99 mg/dL (0-0); ALKALINE PHOSPHATASE 102 U/L (46-116); ASPARTATE AMINOTRANSFERASE 37 U/L (15-37); BILIRUBIN,DIRECT 0.1 mg/dL (0.0-0.2); BILIRUBIN,TOTAL 0.3 mg/dL (0.2-1.0); TOTAL PROTEIN, SERUM 6.9 g/dL (6.4-8.2)
[2020-10-19 17:14] LABS: ACETAMINOPHEN < 0 ug/ml (10-30)
--- NOTE | 2020-10-19 19:26 | NUR ---
CLINICAL AND FACESHEET FAXED TO [facility] FOR VOLUNTARY PSYCH ADMISSION.
--- NOTE | 2020-10-19 21:07 | NUR ---
[facility] IS ACCPETED AT [facility] [place] BY DR GIOVANNI TRIPLETT @ [phone] FOR REPORT
[2020-10-19 21:19] VITALS: BP 129/76
--- NOTE | 2020-10-19 21:22 | NUR ---
[facility] CALLED ETA 45-60MIN.
--- NOTE | 2020-10-19 21:39 | NUR ---
STAFF STATES TO CALL BACK IN 15 MINUTES. NURSE IS BUSY AT THE MOMENT.
--- NOTE | 2020-10-19 22:16 | NUR ---
REPORT GIVEN TO QUANG HAN AT [facility] FOR JCARLOS.
--- NOTE | 2020-10-19 22:18 | NUR ---
REPORT GIVEN TO [facility] TEAM FOR JCARLOS. AND TRANSFERRING RESPONSIBLITIES.
== END 2020-10-19 22:30 ==
LOC: ER 16:20
DX: R45.851 Suicidal ideations (principal); F31.9 Bipolar disorder, unspecified; F20.9 Schizophrenia, unspecified; Z59.0 Homelessness; J45.909 Unspecified asthma, uncomplicated; D64.9 Anemia, unspecified; F19.10 Other psychoactive substance abuse, uncomplicated; F10.10 Alcohol abuse, uncomplicated; Y90.4 Blood alcohol level of 80-99 mg/100 ml; Z20.822 Contact with and (suspected) exposure to COVID-19
CPT/HCPCS: 36415; 80048; 80076; 80299; 80307; 80320; 81001; 85025; 87426; 99285; C9803; G0480

== ENCOUNTER 2024-09-02 12:15 | Emergency (ER) | payer MEDICAID, OTHER ==
[~2024-09-02] VITALS: Ht 185.4 cm; Wt 91.2 kg
[2024-09-02 13:06] LABS: BASOPHILS # (AUTO) 0.1 K/uL (0.0-0.2); EOSINOPHILS # (AUTO) 0.3 K/uL (0.0-0.7); EOSINOPHILS % (AUTO) 4.1 % (0.0-6.0); HEMATOCRIT 38 % (39-51); HEMOGLOBIN 12.4 g/dL (13.5-17.5); LYMPHOCYTES # (AUTO) 1.8 K/uL (0.8-4.8); LYMPHOCYTES % (AUTO) 23.6 % (20.0-44.0); MEAN CORPUSCULAR HEMOGLOBIN 28 PG (26.0-33.0); MEAN CORPUSCULAR HGB CONC 33 g/dl (31.0-36.0); MEAN CORPUSCULAR VOLUME 86 fL (80-96); MONOCYTES # (AUTO) 0.9 K/uL (0.1-1.30); MONOCYTES % (AUTO) 11.4 % (2.0-12.0); NEUTROPHILS # (AUTO) 4.6 K/uL (1.8-8.9); NEUTROPHILS % (AUTO) 59.9 % (43.0-81.0); PLATELET COUNT (AUTO) 281 K/uL (150-450); RED BLOOD CELL COUNT(AUTO) 4.37 MIL/uL (4.5-6.0); RED CELL DISTRIBUTION WIDTH 20.4 % (11.5-15.0); WHITE BLOOD COUNT (AUTO) 7.6 K/uL (4.3-11.0)
[2024-09-02 13:41] LABS: CALCIUM, SERUM 8.8 mg/dL (8.5-10.1); CARBON DIOXIDE 30 mmol/L (21-32); CHLORIDE 105 mmol/L (98-107); CREATININE 0.7 mg/dL (0.6-1.3); GLUCOSE 87 mg/dL (74-106); POTASSIUM 4.2 mmol/L (3.5-5.1); SODIUM SERUM 142 mmol/L (136-145); UREA NITROGEN, BLOOD 14 mg/dL (7-18)
[2024-09-02 14:07] LABS: ALANINE AMINOTRANSFERASE 75 U/L (12-78); ALBUMIN 3.1 g/dL (3.4-5.0); ALCOHOL, BLOOD < 3 mg/dL (0-10); ALKALINE PHOSPHATASE 119 U/L (46-116); ASPARTATE AMINOTRANSFERASE 47 U/L (15-37); BILIRUBIN,DIRECT 0.2 mg/dL (0.0-0.2); BILIRUBIN,TOTAL 0.3 mg/dL (0.2-1.0); TOTAL PROTEIN, SERUM 7.6 g/dL (6.4-8.2)
[2024-09-02 14:09] LABS: ACETAMINOPHEN <10 ug/ml (10-30); SALICYLATE 1.2 mg/dL (2.8-20.0)
[2024-09-02 14:20] LABS: APPEARANCE,URINE CLEAR (CLEAR); BILIRUBIN,URINE NEGATIVE (NEGATIVE); BLOOD, URINE NEGATIVE Ery/uL (NEGATIVE); COLOR,URINE YELLOW (YELLOW); KETONES,URINE NEGATIVE (NEGATIVE); LEUKOCYTE ESTERASE ,URINE NEGATIVE (NEGATIVE); NITRITE, URINE NEGATIVE (NEGATIVE); PROTEIN,URINE NEGATIVE (NEGATIVE); UGLUCOSE NEGATIVE (NEGATIVE); UROBILINOGEN,URINE 0.2 EU/dL (0.2)
[2024-09-02 14:32] LABS: AMPHETAMINE, URINE NEGATIVE (NEGATIVE); BARBITURATE, URINE NEGATIVE (NEGATIVE); COCCAINE, URINE NEGATIVE (NEGATIVE); OPIATE, URINE NEGATIVE (NEGATIVE); PHENCYCLIDINE SCREEN,URINE NEGATIVE (NEGATIVE)
[2024-09-02 14:37] LABS: BENZODIAZEPINE, URINE POSITIVE (NEGATIVE); CANNABINOID, URINE POSITIVE (NEGATIVE)
[2024-09-02 15:10] VITALS: BP 125/67; TEMP 98.2; O2SAT 98
== END 2024-09-02 16:37 ==
LOC: ER 12:43
DX: R45.851 Suicidal ideations (principal); F10.10 Alcohol abuse, uncomplicated; Y90.9 Presence of alcohol in blood, level not specified; J45.909 Unspecified asthma, uncomplicated; F20.9 Schizophrenia, unspecified; Z59.00 Homelessness unspecified; Z20.822 Contact with and (suspected) exposure to COVID-19
CPT/HCPCS: 36415; 80048-TC; 80076-TC; 85025-TC; G0480

== ENCOUNTER 2024-11-15 19:25 | Emergency (ER) | payer OTHER ==
[~2024-11-15] VITALS: Ht 185.4 cm; Wt 90.7 kg
[2024-11-15 20:48] LABS: BASOPHILS # (AUTO) 0.1 K/uL (0.0-0.2); BASOPHILS % (AUTO) 0.8 % (0.0-2.0); EOSINOPHILS # (AUTO) 0.4 K/uL (0.0-0.7); EOSINOPHILS % (AUTO) 3.7 % (0.0-6.0); HEMATOCRIT 39 % (39-51); HEMOGLOBIN 13.2 g/dL (13.5-17.5); LYMPHOCYTES # (AUTO) 2.3 K/uL (0.8-4.8); LYMPHOCYTES % (AUTO) 23.7 % (20.0-44.0); MEAN CORPUSCULAR HEMOGLOBIN 27 PG (26.0-33.0); MEAN CORPUSCULAR HGB CONC 34 g/dl (31.0-36.0); MEAN CORPUSCULAR VOLUME 82 fL (80-96); MONOCYTES # (AUTO) 0.8 K/uL (0.1-1.30); NEUTROPHILS # (AUTO) 6.2 K/uL (1.8-8.9); NEUTROPHILS % (AUTO) 63.8 % (43.0-81.0); PLATELET COUNT (AUTO) 300 K/uL (150-450); RED CELL DISTRIBUTION WIDTH 23.1 % (11.5-15.0); WHITE BLOOD COUNT (AUTO) 9.7 K/uL (4.3-11.0)
[2024-11-15 20:50] LABS: APPEARANCE,URINE CLEAR (CLEAR); BILIRUBIN,URINE Negative (NEGATIVE); BLOOD, URINE Negative Ery/uL (NEGATIVE); COLOR,URINE YELLOW (YELLOW); KETONES,URINE Trace mg/dL (NEGATIVE); LEUKOCYTE ESTERASE ,URINE Negative (NEGATIVE); PH,URINE 5.5 (5.0-8.0); PROTEIN,URINE Negative (NEGATIVE); UGLUCOSE Negative (NEGATIVE); UROBILINOGEN,URINE 0.2 EU/dL (0.2)
[2024-11-15 20:53] LABS: NITRITE, URINE NEGATIVE (NEGATIVE)
[2024-11-15 20:54] LABS: ADD URINE CULTURE NO; BACTERIA,URINE Rare /HPF (None Seen); RBC,URINE 0-2 /HPF (0-2); SQUAMOUS EPITHELIAL CELL,UR None Seen /HPF (None Seen); WBC,URINE 0-2 /HPF (0-3)
[2024-11-15 20:56] LABS: CARBON DIOXIDE 33 mmol/L (21-32); CHLORIDE 105 mmol/L (98-107); CREATININE 0.8 mg/dL (0.6-1.3); GLUCOSE 101 mg/dL (74-106); POTASSIUM 3.9 mmol/L (3.5-5.1); SODIUM SERUM 141 mmol/L (136-145); UREA NITROGEN, BLOOD 21 mg/dL (7-18)
[2024-11-15 20:58] LABS: AMPHETAMINE, URINE NEGATIVE (NEGATIVE); BARBITURATE, URINE NEGATIVE (NEGATIVE); BENZODIAZEPINE, URINE NEGATIVE (NEGATIVE); OPIATE, URINE NEGATIVE (NEGATIVE); PHENCYCLIDINE SCREEN,URINE NEGATIVE (NEGATIVE)
[2024-11-15 20:59] LABS: CANNABINOID, URINE POSITIVE (NEGATIVE); COCCAINE, URINE POSITIVE (NEGATIVE)
[2024-11-15 21:01] LABS: ALANINE AMINOTRANSFERASE 98 U/L (12-78); ALBUMIN 3.6 g/dL (3.4-5.0); ALCOHOL, BLOOD < 3 mg/dL (0-10); ALKALINE PHOSPHATASE 156 U/L (46-116); ASPARTATE AMINOTRANSFERASE 65 U/L (15-37); BILIRUBIN,DIRECT 0.2 mg/dL (0.0-0.2); BILIRUBIN,TOTAL 0.6 mg/dL (0.2-1.0); TOTAL PROTEIN, SERUM 7.7 g/dL (6.4-8.2)
[2024-11-15 21:02] LABS: ACETAMINOPHEN <10 ug/ml (10-30); SALICYLATE 0.4 mg/dL (2.8-20.0)
[2024-11-16 02:04] VITALS: BP 101/63; TEMP 98.4; O2SAT 97
== END 2024-11-16 02:05 ==
LOC: ER 19:26
DX: R45.851 Suicidal ideations (principal); F20.9 Schizophrenia, unspecified; J45.909 Unspecified asthma, uncomplicated; Z59.00 Homelessness unspecified; Z20.822 Contact with and (suspected) exposure to COVID-19
CPT/HCPCS: 36415; 80048-TC; 80076-TC; 81001; 85025-TC; G0480

== ENCOUNTER 2025-02-24 12:31 | Emergency (ER) | payer MEDICAID, OTHER ==
[~2025-02-24] VITALS: Ht 185.4 cm; Wt 95.3 kg
[2025-02-24 12:34] VITALS: TEMP 98
[2025-02-24 12:40] VITALS: BP 135/70; O2SAT 97
[2025-02-24 13:12] LABS: APPEARANCE,URINE CLEAR (CLEAR); BLOOD, URINE Negative Ery/uL (NEGATIVE); LEUKOCYTE ESTERASE ,URINE Negative (NEGATIVE); NITRITE, URINE NEGATIVE (NEGATIVE); UGLUCOSE Negative (NEGATIVE)
[2025-02-24 13:20] LABS: ADD URINE CULTURE NO; SQUAMOUS EPITHELIAL CELL,UR Rare /HPF (None Seen)
[2025-02-24 13:24] LABS: AMPHETAMINE, URINE NEGATIVE (NEGATIVE); BARBITURATE, URINE NEGATIVE (NEGATIVE); BENZODIAZEPINE, URINE NEGATIVE (NEGATIVE); CANNABINOID, URINE POSITIVE (NEGATIVE); COCCAINE, URINE NEGATIVE (NEGATIVE); OPIATE, URINE NEGATIVE (NEGATIVE)
[2025-02-24 13:35] LABS: PLATELET COUNT (AUTO) 184 K/uL (150-450); RED BLOOD CELL COUNT(AUTO) 5.12 MIL/uL (4.5-6.0); RED CELL DISTRIBUTION WIDTH 18.9 % (11.5-15.0); WHITE BLOOD COUNT (AUTO) 6.1 K/uL (4.3-11.0)
[2025-02-24 13:41] LABS: CALCIUM, SERUM 9.1 mg/dL (8.5-10.1); CREATININE 0.9 mg/dL (0.6-1.3); SODIUM SERUM 139 mmol/L (136-145); UREA NITROGEN, BLOOD 14 mg/dL (7-18)
[2025-02-24 13:47] LABS: ALCOHOL, BLOOD 52 mg/dL (0-10); ASPARTATE AMINOTRANSFERASE 84 U/L (15-37); TOTAL PROTEIN, SERUM 7.8 g/dL (6.4-8.2)
== END 2025-02-24 17:51 ==
LOC: ER 12:32
DX: R45.851 Suicidal ideations (principal); F20.9 Schizophrenia, unspecified; F32.A Depression, unspecified; J45.909 Unspecified asthma, uncomplicated; Z59.00 Homelessness unspecified; Z79.899 Other long term (current) drug therapy; Z20.822 Contact with and (suspected) exposure to COVID-19
CPT/HCPCS: 36415; 80048-TC; 80076-TC; 81001; 85025-TC; G0480

== ENCOUNTER 2025-03-27 13:45 | Emergency (ER) | payer OTHER ==
[~2025-03-27] VITALS: Ht 185.4 cm; Wt 97.5 kg
[2025-03-27 14:22] LABS: PLATELET COUNT (AUTO) 296 K/uL (150-450); RED BLOOD CELL COUNT(AUTO) 4.01 MIL/uL (4.5-6.0); RED CELL DISTRIBUTION WIDTH 17.8 % (11.5-15.0); WHITE BLOOD COUNT (AUTO) 9.8 K/uL (4.3-11.0)
[2025-03-27 14:26] LABS: APPEARANCE,URINE CLEAR (CLEAR); BLOOD, URINE NEGATIVE Ery/uL (NEGATIVE); LEUKOCYTE ESTERASE ,URINE NEGATIVE (NEGATIVE); NITRITE, URINE NEGATIVE (NEGATIVE); UGLUCOSE NEGATIVE (NEGATIVE)
[2025-03-27 14:28] LABS: CALCIUM, SERUM 8.8 mg/dL (8.5-10.1); CREATININE 0.7 mg/dL (0.6-1.3); SODIUM SERUM 139 mmol/L (136-145); UREA NITROGEN, BLOOD 11 mg/dL (7-18)
[2025-03-27 14:33] LABS: ASPARTATE AMINOTRANSFERASE 50 U/L (15-37); TOTAL PROTEIN, SERUM 6.9 g/dL (6.4-8.2)
[2025-03-27 14:35] LABS: ALCOHOL, BLOOD < 3 mg/dL (0-10)
[2025-03-27 14:40] LABS: ADD URINE CULTURE YES; AMPHETAMINE, URINE NEGATIVE (NEGATIVE); BARBITURATE, URINE NEGATIVE (NEGATIVE); COCCAINE, URINE NEGATIVE (NEGATIVE); OPIATE, URINE NEGATIVE (NEGATIVE); SQUAMOUS EPITHELIAL CELL,UR Few /HPF (None Seen)
[2025-03-27 14:42] LABS: BENZODIAZEPINE, URINE POSITIVE (NEGATIVE); CANNABINOID, URINE POSITIVE (NEGATIVE)
[2025-03-27 15:50] VITALS: BP 103/82; TEMP 98; O2SAT 99
== END 2025-03-27 17:03 ==
LOC: ER 14:06
DX: F32.A Depression, unspecified (principal); F20.9 Schizophrenia, unspecified; J45.909 Unspecified asthma, uncomplicated; Z59.00 Homelessness unspecified; Z79.899 Other long term (current) drug therapy; Z20.822 Contact with and (suspected) exposure to COVID-19
CPT/HCPCS: 36415; 80048-TC; 80076-TC; 81001; 85025-TC; G0480

== ENCOUNTER 2025-06-04 16:49 | Emergency (ER) | payer MEDICAID, OTHER ==
[~2025-06-04] VITALS: Ht 175.3 cm; Wt 97.5 kg
[2025-06-04 17:09] LABS: APPEARANCE,URINE CLEAR (CLEAR); BLOOD, URINE Negative Ery/uL (NEGATIVE); LEUKOCYTE ESTERASE ,URINE Negative (NEGATIVE); NITRITE, URINE NEGATIVE (NEGATIVE); UGLUCOSE Negative (NEGATIVE)
[2025-06-04 17:16] LABS: PLATELET COUNT (AUTO) 361 K/uL (150-450); RED BLOOD CELL COUNT(AUTO) 3.94 MIL/uL (4.5-6.0); RED CELL DISTRIBUTION WIDTH 18.2 % (11.5-15.0); WHITE BLOOD COUNT (AUTO) 7.6 K/uL (4.3-11.0)
[2025-06-04 17:23] LABS: CALCIUM, SERUM 8.5 mg/dL (8.5-10.1); CREATININE 0.5 mg/dL (0.6-1.3); SODIUM SERUM 138 mmol/L (136-145); UREA NITROGEN, BLOOD 13 mg/dL (7-18)
[2025-06-04 17:26] LABS: ADD URINE CULTURE NO; SQUAMOUS EPITHELIAL CELL,UR 0-2 /HPF (None Seen)
[2025-06-04 17:29] LABS: ASPARTATE AMINOTRANSFERASE 56 U/L (15-37); TOTAL PROTEIN, SERUM 7.0 g/dL (6.4-8.2)
[2025-06-04 17:33] LABS: AMPHETAMINE, URINE NEGATIVE (NEGATIVE); BARBITURATE, URINE NEGATIVE (NEGATIVE); BENZODIAZEPINE, URINE POSITIVE (NEGATIVE); CANNABINOID, URINE NEGATIVE (NEGATIVE); COCCAINE, URINE NEGATIVE (NEGATIVE); OPIATE, URINE NEGATIVE (NEGATIVE)
[2025-06-05 11:39] VITALS: BP 136/68; TEMP 97.9; O2SAT 98
== END 2025-06-05 11:40 ==
LOC: ER 16:54
DX: R45.851 Suicidal ideations (principal); J45.909 Unspecified asthma, uncomplicated; F31.9 Bipolar disorder, unspecified; F20.9 Schizophrenia, unspecified; F19.10 Other psychoactive substance abuse, uncomplicated; Z02.89 Encounter for other administrative examinations; Z59.00 Homelessness unspecified; Z79.899 Other long term (current) drug therapy
CPT/HCPCS: 36415; 80048-TC; 80076-TC; 81001; 85025-TC

== ENCOUNTER 2025-07-02 18:18 | Emergency (ER) | payer OTHER ==
[~2025-07-02] VITALS: Ht 182.9 cm; Wt 97.5 kg
[2025-07-02 18:25] VITALS: BP 139/81; TEMP 98; O2SAT 97
[2025-07-02 18:37] LABS: PLATELET COUNT (AUTO) 422 K/uL (150-450); RED BLOOD CELL COUNT(AUTO) 4.90 MIL/uL (4.5-6.0); RED CELL DISTRIBUTION WIDTH 19.5 % (11.5-15.0); WHITE BLOOD COUNT (AUTO) 10.5 K/uL (4.3-11.0)
[2025-07-02 18:46] LABS: CALCIUM, SERUM 9.2 mg/dL (8.5-10.1); CREATININE 0.7 mg/dL (0.6-1.3); SODIUM SERUM 139 mmol/L (136-145); UREA NITROGEN, BLOOD 7 mg/dL (7-18)
[2025-07-02 18:53] LABS: ALCOHOL, BLOOD < 3 mg/dL (0-10); ASPARTATE AMINOTRANSFERASE 42 U/L (15-37); TOTAL PROTEIN, SERUM 7.8 g/dL (6.4-8.2)
[2025-07-02 19:53] LABS: AMPHETAMINE, URINE NEGATIVE (NEGATIVE); BARBITURATE, URINE NEGATIVE (NEGATIVE); CANNABINOID, URINE NEGATIVE (NEGATIVE); COCCAINE, URINE NEGATIVE (NEGATIVE)
[2025-07-02 19:56] LABS: BENZODIAZEPINE, URINE POSITIVE (NEGATIVE); OPIATE, URINE POSITIVE (NEGATIVE)
[2025-07-02 19:58] LABS: APPEARANCE,URINE CLEAR (CLEAR); BLOOD, URINE NEGATIVE Ery/uL (NEGATIVE); LEUKOCYTE ESTERASE ,URINE NEGATIVE (NEGATIVE); NITRITE, URINE NEGATIVE (NEGATIVE); UGLUCOSE NEGATIVE (NEGATIVE)
[2025-07-02 20:18] LABS: ADD URINE CULTURE YES; SQUAMOUS EPITHELIAL CELL,UR Few /HPF (None Seen)
== END 2025-07-02 22:53 ==
LOC: ER 18:21
DX: R45.851 Suicidal ideations (principal); J45.909 Unspecified asthma, uncomplicated; F31.9 Bipolar disorder, unspecified; F20.9 Schizophrenia, unspecified; Z59.00 Homelessness unspecified; Z20.822 Contact with and (suspected) exposure to COVID-19; Z79.899 Other long term (current) drug therapy
CPT/HCPCS: 36415; 80048-TC; 80076-TC; 81001; 85025-TC; 87086-TC; G0480

== ENCOUNTER 2025-08-05 13:30 | Emergency (ER) | payer OTHER ==
[~2025-08-05] VITALS: Ht 182.9 cm; Wt 88.5 kg
[2025-08-05 13:34] VITALS: TEMP 98.4
[2025-08-05 14:06] LABS: PLATELET COUNT (AUTO) 322 K/uL (150-450); RED BLOOD CELL COUNT(AUTO) 4.80 MIL/uL (4.5-6.0); RED CELL DISTRIBUTION WIDTH 20.6 % (11.5-15.0); WHITE BLOOD COUNT (AUTO) 6.1 K/uL (4.3-11.0)
[2025-08-05 14:21] LABS: CALCIUM, SERUM 8.9 mg/dL (8.5-10.1); CREATININE 0.6 mg/dL (0.6-1.3); SODIUM SERUM 140 mmol/L (136-145); UREA NITROGEN, BLOOD 12 mg/dL (7-18)
[2025-08-05 14:36] LABS: ASPARTATE AMINOTRANSFERASE 37 U/L (15-37); TOTAL PROTEIN, SERUM 7.9 g/dL (6.4-8.2)
[2025-08-05 14:41] LABS: ALCOHOL, BLOOD < 3 mg/dL (0-10)
[2025-08-05 14:52] LABS: APPEARANCE,URINE CLEAR (CLEAR); BLOOD, URINE NEGATIVE Ery/uL (NEGATIVE); LEUKOCYTE ESTERASE ,URINE NEGATIVE (NEGATIVE); NITRITE, URINE NEGATIVE (NEGATIVE); UGLUCOSE NEGATIVE (NEGATIVE)
[2025-08-05 15:02] LABS: ADD URINE CULTURE NO; CALCIUM OXALATE CRYSTALS,UR Few /HPF (None Seen); SQUAMOUS EPITHELIAL CELL,UR None Seen /HPF (None Seen)
[2025-08-05 15:03] LABS: BARBITURATE, URINE NEGATIVE (NEGATIVE); OPIATE, URINE NEGATIVE (NEGATIVE)
[2025-08-05 15:09] LABS: AMPHETAMINE, URINE POSITIVE (NEGATIVE); BENZODIAZEPINE, URINE POSITIVE (NEGATIVE); CANNABINOID, URINE POSITIVE (NEGATIVE); COCCAINE, URINE POSITIVE (NEGATIVE)
[2025-08-05 19:07] VITALS: BP 117/68; O2SAT 99
== END 2025-08-05 21:09 ==
LOC: ER 15:11
DX: R45.851 Suicidal ideations (principal); J45.909 Unspecified asthma, uncomplicated; F31.9 Bipolar disorder, unspecified; F20.9 Schizophrenia, unspecified; Z59.00 Homelessness unspecified; Z79.899 Other long term (current) drug therapy
CPT/HCPCS: 36415; 80048-TC; 80076-TC; 81001; 85025-TC; G0480